=== PATIENT | male | born 1975 | race Caucasian/White ===

== ENCOUNTER → 2017-12-27 | Outpatient (CLI) | payer OTHER | END | disposition home or self-care (01) | LOC: RAD 12:44 | DX: I10 Essential (primary) hypertension (principal) ==

== ENCOUNTER → 2018-01-01 12:23 | Outpatient (CLI) | payer OTHER | END | disposition home or self-care (01) | LOC: SONOGRAMA 12:23 | DX: R80.8 Other proteinuria (principal) ==

== ENCOUNTER 2024-08-22 10:39 | Outpatient (CLI) | payer OTHER | END 2024-08-22 10:51 | disposition home or self-care (01) | LOC: MRI 10:39 | PROVIDERS: ATTEND Neuromusculoskeletal Medicine & OMM | DX: M50.20 Other cervical disc displacement, unspecified cervical region (principal) | CPT/HCPCS: 72141 ==